=== PATIENT | female | born 1955 | race Caucasian/White ===

== ENCOUNTER 2023-07-09 09:25 | Outpatient (CLI) | payer MEDICARE ==
[2023-07-09] MEDS ORDERED: Barium Sulfate 96% 176 GM BOT (xray ONLY) PO ONE (12:46)
[2023-07-09] MEDS ORDERED: E-Z-HD 98% W/W 340GM BOT (x-ray ONLY) ONE (12:46)
== END 2023-07-09 09:26 | disposition home or self-care (01) ==
LOC: RAD 09:25
PROVIDERS: ATTEND Internal Medicine Critical Care Medicine
DX: R06.00 Dyspnea, unspecified (principal)
CPT/HCPCS: 71046

== ENCOUNTER 2024-07-08 09:50 | Outpatient (CLI) | payer MEDICARE | END 2024-07-08 09:51 | disposition home or self-care (01) | LOC: RAD 09:50 | PROVIDERS: ATTEND Internal Medicine Critical Care Medicine | DX: R06.00 Dyspnea, unspecified (principal) | CPT/HCPCS: 71046 ==

== ENCOUNTER 2025-07-07 10:27 | Outpatient (CLI) | payer MEDICARE | END 2025-07-07 10:28 | disposition home or self-care (01) | LOC: RAD 10:27 | PROVIDERS: ATTEND Internal Medicine Critical Care Medicine | DX: R06.00 Dyspnea, unspecified (principal) | CPT/HCPCS: 71046 ==